=== PATIENT | female | born 2000 | race American Indian/Alaskan Native ===

== ENCOUNTER 2024-01-22 21:31 | Emergency (ER) | payer SELFPAY ==
[~2024-01-22] VITALS: Ht 177.8 cm; Wt 54.4 kg
[2024-01-22 21:56] VITALS: BP_SYST 136; PULSE 115; RESP 20; TEMP 98.9; O2SAT 100
[2024-01-22 23:25] VITALS: BP_SYST 136; PULSE 115; RESP 20; TEMP 98.9; O2SAT 100
== END 2024-01-22 23:25 | disposition left against medical advice (07) ==
LOC: SED 21:31
DX: H57.89 Other specified disorders of eye and adnexa (principal); Z53.21 Procedure and treatment not carried out due to patient leaving prior to being seen by health care provider

== ENCOUNTER 2024-03-09 00:25 | Emergency (ER) | payer SELFPAY ==
[~2024-03-09] VITALS: Ht 152.4 cm; Wt 56.7 kg
[2024-03-09 00:38] VITALS: BP_SYST 96; PULSE 145; RESP 20; TEMP 98; O2SAT 98
[2024-03-09] MEDS: NACL 0.9% 1,000 ML IV ONE ×2 (02:38→03:37)
[2024-03-09] MEDS: ONDANSETRON HCL 4 MG/2 ML VIAL IVP ONE (02:42)
[2024-03-09 03:09] LABS: BASOPHILS % (AUTO) 0.2 % (0.0-2.0); EOSINOPHILS % (AUTO) 0.1 % (0.0-4.0); HEMATOCRIT 42.5 % (36-48); HEMOGLOBIN 14.4 g/dL (12.0-16.0); LYMPHOCYTES # (AUTO) 0.9 K/uL (1.0-5.5); LYMPHOCYTES % (AUTO) 7.5 % (20.5-51.5); MEAN CORPUSCULAR HEMOGLOBIN 30 pg (27-31); MEAN CORPUSCULAR HGB CONC 34 % (32-36); MEAN CORPUSCULAR VOLUME 88 fL (79.0-98.0); MONOCYTES # (AUTO) 0.7 K/uL (0.0-1.0); MONOCYTES % (AUTO) 5.8 % (1.7-9.3); NEUTROPHILS # (AUTO) 10.6 K/uL (1.8-7.7); NEUTROPHILS % (AUTO) 86.4 % (40.0-70.0); PLATELET COUNT (AUTO) 293 K/uL (130-430); RED BLOOD CELL COUNT(AUTO) 4.84 MIL/uL (4.2-6.2); RED CELL DISTRIBUTION WIDTH 13.7 % (9.0-15.0); WHITE BLOOD COUNT (AUTO) 12.3 K/uL (4.8-10.8)
[2024-03-09 03:25] LABS: CALCIUM 10.5 mg/dL (8.4-11.0); CREATININE 0.69 mg/dL (0.55-1.30)
[2024-03-09 03:37] LABS: SERUM HCG (QUALITATIVE) POSITIVE (NEGATIVE)
[2024-03-09] MEDS: KCL 10 mEq in 50 mL (PREMIX) 50 ML IV ONE (04:35)
[2024-03-09] MEDS ORDERED: ACET-2634 PO (06:29)
[2024-03-09] MEDS ORDERED: ONDA-8 TL (06:29)
[2024-03-09 06:44] VITALS: BP_SYST 109; PULSE 102; RESP 16; TEMP 97.7; O2SAT 100
== END 2024-03-09 06:45 | disposition home or self-care (01) ==
LOC: SED 00:25
DX: O21.1 Hyperemesis gravidarum with metabolic disturbance (principal); R10.30 Lower abdominal pain, unspecified; E86.0 Dehydration; Z3A.09 9 weeks gestation of pregnancy; Z88.0 Allergy status to penicillin
CPT/HCPCS: 99285; 76700; 96365; 76805; 96361; 96375; 80048; 84703; 84702; 83690; 85025; 36415; 76705; J2405; J3480; J7030